=== PATIENT | female | born 1980 | race Caucasian/White ===

== ENCOUNTER 2024-10-19 08:50 | Day surgery (SDC) | payer OTHER, BC ==
[2024-10-16 14:15] VITALS: BMI 30.2
[2024-10-19 09:06] VITALS: RESP 18
[2024-10-19 10:40] VITALS: TEMP 98
[2024-10-19 11:01] VITALS: BP 105/75; PULSE 81
== END 2024-10-19 11:00 | disposition home or self-care (01) ==
LOC: FASU-ENDO 08:50
PROVIDERS: ATTEND Internal Medicine Gastroenterology
PROC: 0DJD8ZZ Inspection of Lower Intestinal Tract, Via Natural or Artificial Opening Endoscopic (ICD-10-PCS; principal; 2024-10-19 09:56)
DX: Z12.11 Encounter for screening for malignant neoplasm of colon (principal); K64.1 Second degree hemorrhoids; K64.8 Other hemorrhoids
CPT/HCPCS: 81025